=== PATIENT | male | born 1985 | race Caucasian/White ===

== ENCOUNTER 2017-08-13 14:57 | Emergency (ER) | payer SELFPAY ==
[2017-08-13 14:59] VITALS: BP 155/86; PULSE 87; RESP 18; TEMP 36.9; O2SAT 97; BMI 31.1
[2017-08-13 15:39] VITALS: RESP 17
[2017-08-13] MEDS: Clindamycin HCl 150 MG Capsule 300 MG PO (15:47)
--- NOTE | 2017-08-13 16:33 | ED.DCSUM_ITS ---
- ER Visit Summary Date of Service: 08/13/17 Chief Complaint: Right index finger pain and swelling History of Present Illness: The patient is a 32 M who noted pain and swelling to the right index finger yesterday. It has progressed down toward his hands. Patient does state that he bites his fingernails. He is right-hand dominant. Physical Examination: Vital signs are significant for hypertension with a pressure 155/86, otherwise normal. Head and neck examination is normal. Heart is regular rate and rhythm. Lung sounds are clear. Right upper extremity examination reveals a paronychia along the base of the right index fingernail. There is mild edema of the finger. There is no sign of flexor or extensor tenosynovitis. Good cap refill and normal sensation are noted. Test Results: [] Emergency Department Course and Treatment: Patient is given a dose of clindamycin. Digital block is performed with 3 cc 1% lidocaine. An incision is made with a #11 blade just proximal to the nailbed. I do get return of pus and blood. Wound is cleansed and dressed. Patient will be continued on clindamycin. Treatment Plan: [] Disposition: Discharge Impression: Paronychia right index finger status post I&D This note was generated with [employer] dictation software. It may contain incorrect words, spelling, and punctuation that were not noted in review of the chart prior to signing ED Disposition - Plan for ED Patient: Disposition: Home or Assisted Living Chief Complaint: Upper Extremity Injury Instructions: ED Fingernail Infec Prescriptions: Naproxen [Naprosyn] 500 mg PO BID PRN #20 tablet Clindamycin [Cleocin] 300 mg PO 4X/DAY #80 capsule Referrals: Luis Garcia MD [Primary Care Provider] - 1 Week
[2017-08-13 16:41] VITALS: PULSE 91; RESP 16; O2SAT 95
== END 2017-08-13 16:43 | disposition home or self-care (01) ==
PROVIDERS: Emergency Provider Emergency Medicine; Family Provider Family Medicine; PCP Family Medicine
DX: L03.011 Cellulitis of right finger (principal); Z72.0 Tobacco use
CPT/HCPCS: 10060; 99283

== ENCOUNTER 2018-03-13 14:34 | Emergency (ER) | payer SELFPAY ==
[2018-03-13 14:35] VITALS: BP 146/89; PULSE 92; RESP 16; TEMP 36.9; O2SAT 98; BMI 30.9
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
== END 2018-03-13 15:37 | disposition home or self-care (01) ==
LOC: ED 15:01
PROVIDERS: Emergency Provider Emergency Medicine; Family Provider Family Medicine; PCP Family Medicine
DX: S16.1XXA Strain of muscle, fascia and tendon at neck level, initial encounter (principal); S29.012A Strain of muscle and tendon of back wall of thorax, initial encounter; V49.40XA Driver injured in collision with unspecified motor vehicles in traffic accident, initial encounter; Y93.9 Activity, unspecified; Y92.9 Unspecified place or not applicable; Y99.9 Unspecified external cause status; Z72.0 Tobacco use
CPT/HCPCS: 99282

== ENCOUNTER 2019-06-14 14:29 | Emergency (ER) | payer SELFPAY ==
[2019-06-14] VITALS (11 sets, daily range): BP systolic 102–118; BP diastolic 68–81; PULSE 80–137; RESP 14–18; TEMP 36.6; O2SAT 96–98; BMI 25.0
--- NOTE | 2019-06-14 15:32 | EKG12_ITS ---
Test Reason : MEDICAL CLEARANCE Blood Pressure : / mmHG Vent. Rate : 103 BPM Atrial Rate : 103 BPM P-R Int : 136 ms QRS Dur : 084 ms QT Int : 340 ms P-R-T Axes : 059 062 023 degrees QTc Int : 445 ms Sinus tachycardia Otherwise normal ECG Confirmed by ANGELI MERRILL ([id number]), copy editor ANNETTE BARROW ([id number]) on 06/17/2019 10:58:14 AM Referred By: ALANA Confirmed By:ANGELI MERRILL
--- NOTE | 2019-06-14 15:33 | ED.VISSUMM ---
- ER Visit Summary Date of Service: 06/14/19 Chief Complaint: Suicidal ideation History of Present Illness: The patient is a 34 M who presents with suicidal ideation that began today. Patient was in care home and was being released when he made threats to kill himself as well as his ex-. Currently, the patient denies any suicidal homicidal ideations. Patient states that his [id number] was lying about all of this. Police report the patient has been anxious and combative. Patient was seen by crisis at the care home and needs medical clearance. Crisis is trying to admit the patient to [facility]. [place] slip was filled out by crisis. Physical Examination: Vital signs are stable except for tachycardia of 137. Patient is afebrile. Patient is in no acute distress. Oral mucosa is pink and moist. Neck is supple. Trachea is midline. There is no JVD. Heart was regular rate and rhythm. Lungs are clear and equal bilaterally. Abdomen is soft. Bowel sounds are normal. There is no tenderness. Cranial nerves II through XII are intact. There are no focal motor or sensory deficits noted. Patient does have a flat affect and poverty of speech. Patient currently denies any suicidal homicidal ideations. Test Results: EKG showed sinus rhythm with a rate of 103. There are no acute ST or T wave changes. CBC shows a slight leukocytosis of 11.6. Basic metabolic profile and hepatic profile were obtained and were within normal limits. Urine tox screen was positive for amphetamines, methamphetamines, and benzodiazepines. Serum alcohol level was normal. Emergency Department Course and Treatment: Patient did attempt to leave the emergency department. Patient was found and brought back to the emergency department. Patient was getting more agitated. Patient was given a dose of Geodon and Ativan. Patient remained calm and cooperative after this. Crisis will be in to evaluate the patient and attempt to transfer the patient to [facility]. Disposition: Transfer to psychiatric facility Impression: 1. Depression with suicidal ideation 2. Homicidal ideation 3. Substance abuse This note was generated with [employer] dictation software. It may contain incorrect words, spelling, and punctuation that were not noted in review of the chart prior to signing ED Disposition - Plan for ED Patient: Disposition: Psychiatric Hospital or Unit Diagnosis: Depression with suicidal ideation, Homicidal ideation, Substance abuse Referrals: Luis Garcia MD [NON-STAFF] -
[2019-06-14 15:41] LABS: Absolute Lymphocyte Count 2.51 X10^3/uL (0.83-4.51); Basophil# 0.04 X10^3/uL; Basophil% 0.3 % (0-1); Eosinophil# 0.12 X10^3/uL; Hematocrit 48.8 % (40-54); Hemoglobin 15.9 g/dL (13.0-16.5); Lymphocyte # 2.51 X10^3/ul (4.0); Lymphocyte % 21.6 % (19-41); Mean Corp Hgb Conc 32.6 g/dL (32-36); Mean Corpuscular Volume 89.1 fL (80-94); Mean Platelet Vol. 9.3 fl (6.2-12.0); Monocyte# 0.88 X10^3/uL; Monocyte% 7.6 % (0-10); NRBC Flagged by Analyzer 0 % (0-5); Neutrophil # 8.04 X10^3/uL (2.7-7.7); Neutrophil % 69.2 % (47-70); Platelet Count 355 K/mm3 (150-450); RBC Distribution Width CV 13.9 % (11.6-14.6); RBC Distribution Width SD 45.4 fl (35.1-43.9); Red Blood Count 5.48 M/mm3 (4.6-6.2); White Blood Count 11.6 K/mm3 (4.4-11.0)
[2019-06-14 15:46] LABS: Anion Gap 11 (5-15); BUN 15 mg/dL (7-18); BUN/Creat Ratio 16.8 RATIO (10-20); Calcium,Total 9.8 mg/dL (8.5-10.1); Chloride 106 mmol/L (98-107); Creatinine, Serum 0.89 mg/dL (0.70-1.30); EST Glomerular Filtration Rate 103 mL/min (>60); Est Glom Filt Rate - Afr Amer 125 mL/min (>60); Estimated Creatinine Clearance 100.77 ml/min; Glucose 71 mg/dL (74-106); Potassium 3.9 mmol/L (3.5-5.1); Sodium Level 139 mmol/L (136-145)
[2019-06-14 16:22] LABS: AST(SGOT) 18 U/L (15-37); Alanine Aminotransfer ALT/SGPT 32 U/L (16-61); Albumin, Serum 4.2 g/dL (3.2-5.0); Alkaline Phosphatase 87 U/L (45-117); Bilirubin, Direct 0.18 mg/dL (0.00-0.30); Globulin 4.2 g/dL (2.2-4.2); Protein, Total 8.4 g/dL (6.4-8.2)
[2019-06-14 16:31] LABS: Amphetamine Urine VISTA POSITIVE (<1000 ng/mL); Barbiturate Urine VISTA NEGATIVE (< 200 ng/mL); Benzodiazepine Urine VISTA POSITIVE (< 200 ng/mL); Cocaine Urine VISTA NEGATIVE (< 300 ng/mL); Ecstacy Urine VISTA POSITIVE (< 500 ng/mL); Methadone Urine VISTA NEGATIVE (< 300 ng/mL); PCP Urine VISTA NEGATIVE (< 25 ng/mL); THC Urine VISTA NEGATIVE (< 50 ng/mL); Vista UDS pH Range 6
--- NOTE | 2019-06-14 17:06 | ED.RN ---
THIS RN AT BEDSIDE WITH PT FOR CUSTOMER SERVICE EVALUATION. PT REPORTS. I HEARD THAT MALI THE COUNSELOR CALLED FOR ME TWO HOURS AGO. WHAT IS GOING ON. THIS RN TRYING TO EXPLAIN TO PT THAT HE NEEDS TO BE MEDICALLY CLEARED BY THE DOCTOR BEFORE THEY CAN DECIDE HIS PLAN OF CARE. PT REPORTS, FUCK THIS I AM OUT OF HERE AND I AM NOT GOING ANYWHERE. PT LEAVES THE DEPT. POLICE AND SECURITY NOTIFIED.
[2019-06-14] MEDS: LORazepam 2 MG/ML Syringe 1 MG IM (17:33)
[2019-06-14] MEDS: Ziprasidone IM 20 MG/ML VIAL IM (17:34)
--- NOTE | 2019-06-14 17:39 | ED.RN ---
PT ESCORTED BACK INTO DEPT BY OFFICER RENEA AND ANNETTE DATASTAGE DEVELOPER. PT SHOUTING IN ROOM. OFFICER AT BEDSIDE SPEAKING TO PT OFFERING EMOTIONAL SUPPORT. PT EDUCATED THAT HE CANNOT LEAVE THE DEPT. PT ASKS FOR MEDICATION TO HELP HIM CALM DOWN. PT MEDICATED. PT GIVEN MEAL TRAY. PT REMAINS COOPERATIVE AT THIS TIME. PT TEARFUL. SITTER AT BEDSIDE.
[2019-06-14 18:42] LABS: Alcohol, Blood (Medical)-Serum < 3.0 mg/dL
[2019-06-15] VITALS (15 sets, daily range): BP systolic 109–128; BP diastolic 70–91; PULSE 78–105; RESP 14–18; TEMP 36.8; O2SAT 95–98
[2019-06-15] MEDS: Escitalopram Oxalate 20 MG Tablet PO (11:31)
--- NOTE | 2019-06-15 12:07 | CM.ED ---
SOCIAL WORK RECEIVED CALL FROM MALI WITH CRISIS. PER MALI WILL CHECK IN WITH [facility] REGARDING STATES OF BED. CRISIS TO SET UP TRANSPORT UPON D/C. D. MS SURESHW, GENERAL ROAD SUPERVISOR.
[2019-06-15] MEDS: ALPRAZolam 0.5 MG Tablet PO ×2 (16:48→19:48)
[2019-06-15] MEDS: Ziprasidone HCl 20 MG Capsule PO (19:48)
== END 2019-06-15 20:35 ==
PROVIDERS: Emergency Provider Emergency Medicine
DX: F32.9 Major depressive disorder, single episode, unspecified (principal); R45.851 Suicidal ideations; R45.850 Homicidal ideations; F19.10 Other psychoactive substance abuse, uncomplicated; Z79.899 Other long term (current) drug therapy; F17.200 Nicotine dependence, unspecified, uncomplicated
CPT/HCPCS: 80048; 80076; 80307; 80320; 85025; 93005; 96372; 99285; J7030; G0480; J3486

== ENCOUNTER 2020-05-15 00:50 | Emergency (ER) | payer MEDICAID, SELFPAY ==
[2019-06-14 14:33] VITALS: BMI 25.0
[2020-05-15] VITALS (15 sets, daily range): BP systolic 112–146; BP diastolic 58–104; PULSE 72–108; RESP 13–21; TEMP 36.4; O2SAT 92–98; BMI 31.4
--- NOTE | 2020-05-15 00:55 | ED.RN ---
PT REFUSING TO GET UNDRESSED. JUST LET ME SLEEP. YOU MOTHER JOHN SENT ME TO [facility] TWICE AND THAT AINT HAPPENING.
--- NOTE | 2020-05-15 01:04 | EKG12_ITS ---
Test Reason : OVERDOSE Blood Pressure : / mmHG Vent. Rate : 096 BPM Atrial Rate : 096 BPM P-R Int : 156 ms QRS Dur : 092 ms QT Int : 364 ms P-R-T Axes : 051 024 015 degrees QTc Int : 459 ms Normal sinus rhythm Normal ECG Confirmed by DANIELA LINARES, SAE ([id number]), editorial clerk ALFREDITO BRYAN ([id number]) on 05/17/2020 9:47:30 AM Referred By: RINA Confirmed By:SAE SUAREZ MD
--- NOTE | 2020-05-15 01:05 | ED.DCSUM_ITS ---
History of Present Illness Chief Complaint: Overdose Informant: Patient Narrative: Stated approximately an hour and a half ago he took 25 tablets of his home Seroquel 50 mg. He did this to overdose to kill himself on purpose. He has history of bipolar and takes his medication. Denies any other medical problems. Currently he stated he is refusing all treatment. He is unsure who called the paramedics who brought him in. He has been admitted to [facility] twice in the past for bipolar related problems. Patient stated he is not wanting any treatment. He is not cooperative with history and told me to get the out of his room and is cussing at me. Past Medical History - Allergies and Home Meds Allergies/Adverse Reactions: Allergies No Known Allergies Allergy (Verified 06/14/19 14:31) Primary Care Physician: Care Physician,No Primary [Primary Care Provider] - Prior records reviewed: Yes Past Medical History: - - Bipolar disorder Surgical History: - - reviewed Smoking Status: Current every day smoker Alcohol: None Drugs: None Review of Systems General: Denies: Chills, Fever, Sweats Eyes: Denies: Visual changes - bilaterally, Diplopia ENT: Denies: Rhinorrhea, Sore throat Cardiovascular: Denies: Chest pain, Palpitations Respiratory: Denies: Dyspnea, Cough, Dyspnea on exertion Gastrointestinal: Denies: Abdominal pain, Nausea, Vomiting, Diarrhea, Melena, Hematochezia Genitourinary: Denies: Dysuria, Hematuria, Frequency Musculoskeletal: Denies: Back pain, Extremity Pain Skin: Denies: Rash, Wounds Neurological: Denies: Headache, Weakness, Numbness Psych: Reports: - - Suicidal gesture with overdose Physical Exam Vital Signs/Narrative: Vital Signs Temp Pulse Resp BP Pulse Ox 05/15/20 00:50 97.5 F L 102 H 16 132/85 H 96 General: Well nourished, Well developed, No Acute Distress Head: Normocephalic, Atraumatic Eyes: Perrl, EOMI ENT: Moist mucous membranes, No rhinorrhea Neck: Supple, Nontender Cardiovascular: Regular rate, Regular rhythm, No murmurs Respiratory: No distress, CTA bilaterally, Chest nontender Abdomen: Soft, Nontender, Nondistended, Normal bowel sounds Back: Nontender, Normal Inspection Extremities: Nontender, No edema Skin: Normal color, No rash Neurological: Alert, Oriented x3, Cranial nerves II-XII grossly intact, Normal Strength, Normal Sensation Psychological: Normal affect, Normal Mood Diagnostic/Tx/Re-eval - Medical Decision Making Patient angry that is here for evaluation. Lab work ordered. Due to the fact that the patient stated this happened an hour and a half ago I do not feel he needs activated charcoal. Work shows nothing acute. Alcohol negative. EKG shows sinus rhythm at a rate of 96 QTC 459. Discussed the case with poison control. They recommend monitoring the patient for 6 hours postingestion. He has been resting comfortably with no acute problems throughout this time. Will be seen by mental health in the morning after medical clearance that time. ED Disposition - Plan for ED Patient: Disposition: Psychiatric Hospital or Unit Diagnosis: Drug overdose, intentional
[2020-05-15 01:31] LABS: Absolute Lymphocyte Count 4.16 X10^3/uL (0.83-4.51); Absolute Neutrophil Count 2.9 X10^3/uL (2.0-7.7); Basophil# 0.03 X10^3/uL; Basophil% 0.4 % (0-1); Eosinophil# 0.16 X10^3/uL; Hemoglobin 13.1 g/dL (13.0-16.5); Lymphocyte # 4.16 X10^3/ul (4.0); Lymphocyte % 50.7 % (19-41); Mean Corp Hgb Conc 32.8 g/dL (32-36); Mean Corpuscular Hgb 29.7 pg (27.0-32.0); Mean Corpuscular Volume 90.7 fL (80-94); Mean Platelet Vol. 9.1 fl (6.2-12.0); Monocyte# 0.98 X10^3/uL; NRBC Flagged by Analyzer 0 % (0-5); Neutrophil # 2.85 X10^3/uL (2.7-7.7); Neutrophil % 34.7 % (47-70); Platelet Count 313 K/mm3 (150-450); RBC Distribution Width CV 13.5 % (11.6-14.6); Red Blood Count 4.41 M/mm3 (4.6-6.2); White Blood Count 8.2 K/mm3 (4.4-11.0)
[2020-05-15 01:47] LABS: AST(SGOT) 13 U/L (15-37); Alanine Aminotransfer ALT/SGPT 32 U/L (16-61); Albumin, Serum 3.4 g/dL (3.2-5.0); Alkaline Phosphatase 81 U/L (45-117); Anion Gap 5 (5-15); BUN 7 mg/dL (7-18); BUN/Creat Ratio 7.4 RATIO (10-20); Calcium,Total 8.7 mg/dL (8.5-10.1); Chloride 109 mmol/L (98-107); Creatinine, Serum 0.94 mg/dL (0.70-1.30); EST Glomerular Filtration Rate 96 mL/min (>60); Est Glom Filt Rate - Afr Amer 117 mL/min (>60); Globulin 3.5 g/dL (2.2-4.2); Glucose 132 mg/dL (74-106); Potassium 3.4 mmol/L (3.5-5.1); Protein, Total 6.9 g/dL (6.4-8.2); Sodium Level 143 mmol/L (136-145)
--- NOTE | 2020-05-15 02:17 | ED.RN ---
mother updated on patient condition at this time
[2020-05-15 02:19] LABS: Alcohol, Blood (Medical)-Serum < 3.0 mg/dL
--- NOTE | 2020-05-15 02:45 | ED.RN ---
NOT PUSHING FOR URINE PT NEEDS OBSERVED FOR 6 HRS BEFORE MEDICALLY CLEARED.
[2020-05-15 06:19] LABS: Glucose, Dipstick Normal (Normal); Ketone-Dipstick Negative (Negative); Leukocyte Esterase-Dipstick Negative /ul (Negative); Nitrite-Dipstick Negative (Negative); Occult Blood-Urine Negative /ul (Negative); Protein-Dipstick 15 mg/dl (Negative); Urine Bilirubin Dipstick Negative (Negative); Urine Urobilinogen Normal (Normal)
[2020-05-15 06:20] LABS: Bacteria 0 SEEN /hpf (None Seen); Color, Urine Yellow (Yellow); Mucous, Urine 0 SEEN /hpf (<or=2+); Red Blood Cells-Urine 0 SEEN /hpf (0-5)
[2020-05-15 06:21] LABS: Urine Clarity Clear (Clear)
[2020-05-15 06:26] LABS: Squamous Epithelial Cells - UA 0-5 SEEN /hpf (0-5); White Blood Cells 0-5 SEEN /hpf (0-5)
[2020-05-15 06:39] LABS: Amphetamine Urine VISTA POSITIVE (<1000 ng/mL); Barbiturate Urine VISTA NEGATIVE (< 200 ng/mL); Benzodiazepine Urine VISTA POSITIVE (< 200 ng/mL); Cocaine Urine VISTA NEGATIVE (< 300 ng/mL); Ecstacy Urine VISTA POSITIVE (< 500 ng/mL); Methadone Urine VISTA NEGATIVE (< 300 ng/mL); PCP Urine VISTA NEGATIVE (< 25 ng/mL); THC Urine VISTA NEGATIVE (< 50 ng/mL); Vista UDS pH Range 6
[2020-05-15 07:46] LABS: Acetaminophen (Tylenol) Level < 2.0 ug/mL (10.0-30.0); Salicylate < 1.7 mg/dL (2.8-20.0)
--- NOTE | 2020-05-15 07:50 | EKG12_ITS ---
Test Reason : [facility] Blood Pressure : / mmHG Vent. Rate : 095 BPM Atrial Rate : 095 BPM P-R Int : 154 ms QRS Dur : 090 ms QT Int : 360 ms P-R-T Axes : 045 023 017 degrees QTc Int : 452 ms Normal sinus rhythm Normal ECG Confirmed by BELLA LINARES, LAKIA ([id number]), assistant editor ALFREDITO BRYAN ([id number]) on 05/16/2020 9:22:50 AM Referred By: CAMI Confirmed By:LAKIA BLANCO MD
--- NOTE | 2020-05-15 09:28 | ED.RN ---
PT TALKING TO THE COUNSELING CENTER ON THE PHONE. DURING THE CONVERSATION, PT HUNG UP AND THREW THE PHONE.
--- NOTE | 2020-05-15 09:30 | ED.RN ---
ALLERGIES PER THE RECORDS AT THE COUNSELING CENTER
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
[2020-05-15] MEDS: Ziprasidone IM 20 MG/ML VIAL IM (10:40)
--- NOTE | 2020-05-15 13:10 | ED.RN ---
REMOVED RIGHT WRIST AND LEFT ANKLE FROM RESTRAINTS.
[2020-05-16] VITALS: BP 129/84; PULSE 97; RESP 14; O2SAT 97
[2020-05-16 01:00] VITALS: BP 129/80; PULSE 91; RESP 25; O2SAT 97
[2020-05-16] MEDS: Ziprasidone IM 20 MG/ML VIAL IM (01:41)
== END 2020-05-16 01:45 ==
PROVIDERS: Student in an Organized Health Care Education/Training Program; Emergency Provider Emergency Medicine
DX: T43.592A Poisoning by other antipsychotics and neuroleptics, intentional self-harm, initial encounter (principal); F17.200 Nicotine dependence, unspecified, uncomplicated; F31.9 Bipolar disorder, unspecified
CPT/HCPCS: 80053; 80307; 80320; 80329; 81001; 83735; 85025; 87426; 93005; 96372; 99285; G0480; J3486

== ENCOUNTER 2020-06-01 13:34 | Emergency (ER) | payer MEDICAID, SELFPAY ==
[2020-05-15 00:50] VITALS: BMI 31.4
[2020-06-01 13:35] VITALS: BP 152/99; PULSE 109; RESP 16; TEMP 35.9; O2SAT 99; BMI 32.1
--- NOTE | 2020-06-01 14:14 | ED.DCSUM_ITS ---
History of Present Illness Chief Complaint: Abd Pain Informant: Patient Onset: Month(s) - 1 Narrative: Presents intermittent left upper quadrant epigastric abdominal pain for the past month. Reports symptoms started after bending over and tying his shoes. Denies any trauma. Denies vomiting or diarrhea. Denies melena or hematochezia. Normal bowel movements. Denies fevers. He states his urine frequency. Denies any abdominal surgeries. Has not had this evaluated. Prior similar symptoms: No Past Medical History - Allergies and Home Meds Allergies/Adverse Reactions: Allergies clonazepam [From Klonopin] Allergy (Verified 06/01/20 13:37) DECREASED LOC lorazepam [From Ativan] Allergy (Verified 06/01/20 13:37) Shortness of breath Primary Care Physician: Care Physician,No Primary [NON-STAFF] - Past Medical History: - - Anxiety and depression Surgical History: - - reviewed Smoking Status: Current every day smoker Review of Systems General: Denies: Chills, Fever, Sweats Eyes: Denies: Visual changes - bilaterally, Diplopia ENT: Denies: Rhinorrhea, Sore throat Cardiovascular: Denies: Chest pain, Palpitations Respiratory: Denies: Dyspnea, Cough, Dyspnea on exertion Gastrointestinal: Reports: Abdominal pain. Denies: Nausea, Vomiting, Diarrhea, Melena, Hematochezia Genitourinary: Denies: Dysuria, Hematuria, Frequency Musculoskeletal: Denies: Back pain, Extremity Pain Skin: Denies: Rash, Wounds Neurological: Denies: Headache, Weakness, Numbness Physical Exam Vital Signs/Narrative: Vital Signs Temp Pulse Resp BP Pulse Ox 06/01/20 13:35 96.6 F L 109 H 16 152/99 H 99 Inital Vital Signs reviewed: Yes General: Well nourished, Well developed, No Acute Distress Head: Normocephalic, Atraumatic Eyes: Perrl, EOMI ENT: Moist mucous membranes, No rhinorrhea Neck: Supple, Nontender Cardiovascular: Regular rate, Regular rhythm, No murmurs Respiratory: No distress, CTA bilaterally, Chest nontender Abdomen: Soft, Nondistended, Normal bowel sounds, - - Minimal tenderness epigastric region. No guarding or rebound. Negative Salvador's or McBurney's tenderness. Back: Nontender, Normal Inspection Extremities: Nontender, No edema Skin: Normal color, No rash Neurological: Alert, Oriented x3, Cranial nerves II-XII grossly intact, Normal Strength, Normal Sensation Psychological: Normal affect, Normal Mood Diagnostic/Tx/Re-eval Abnormal Lab Results 06/01/20 06/01/20 06/01/20 14:25 14:40 14:40 WBC 7.9 RBC 4.54 L Hgb 13.2 Hct 42.0 MCV 92.5 MCH 29.1 MCHC 31.4 L RDW Std Deviation 49.6 H RDW Coeff of Vick 14.5 Plt Count 276 MPV 8.8 Immature Gran % (Auto) 0.500 Neut % (Auto) 52.8 Lymph % (Auto) 33.6 [place] % (Auto) 10.7 H Eos % (Auto) 1.9 Baso % (Auto) 0.5 Absolute Neuts (auto) 4.1 Absolute Lymphs (auto) 2.64 Nucleated RBC % 0 Sodium 142 Potassium 3.7 Chloride 109 H Carbon Dioxide 30.0 Anion Gap 3 L BUN 15 Creatinine 0.89 Estim Creat Clear Calc 99.81 Est GFR (MDRD) Af Amer 124 Est GFR (MDRD) Non-Af 102 BUN/Creatinine Ratio 16.8 Glucose 71 L Calcium 8.5 Total Bilirubin 0.20 AST 38 H ALT 119 H Alkaline Phosphatase 91 Total Protein 7.7 Albumin 3.6 Globulin 4.1 Albumin/Globulin Ratio 0.9 Lipase 138 Urine Color Yellow Urine Clarity Sl. Cloudy Urine pH 5.0 Ur Specific [place] 1.015 Urine Protein Negative Urine Glucose (UA) Normal Urine Ketones 5 H Urine Occult Blood Negative Urine Nitrite Negative Urine Bilirubin Negative Urine Urobilinogen Normal Ur Leukocyte Esterase Negative Urine RBC 0 SEEN Urine WBC 0-5 SEEN Ur Squamous Epith Cells 0-5 SEEN Urine Bacteria RARE Urine Mucus RARE - Medical Decision Making Patient with a nonsurgical abdomen. Vital signs stable. Abdominal labs normal urine negative. Given GI cocktail which he reports did not make any difference. Reports has been using Tylenol with no relief. There is no rash in the region. Do not feel imagings are necessary at this time. Normal GI function. Patient given NSAID prescription following up with his PCP. All questions were answered. Patient is being discharged under pandemic conditions under declared global, national and state disaster activation, with limited medical resources. Patient and community understands this. Results discussed in layman's terms to the patient satisfaction. All questions answered in layman's terms. Patient understands importance of follow-up care as directed. Patient has been instructed to return to the ED immediately if new symptoms, problems, or questions occur. We mutually agree with the plan of disposition. The patient understand that they may call or return with any questions or concerns at any time. ED Disposition - Plan for ED Patient: Disposition: Home or Assisted Living Diagnosis: Abdominal pain in male Instructions: ED Unknown Causes of Abdominal ... Prescriptions: Naproxen [Naprosyn] 500 mg PO BID #20 tab Transmission Status: Pending to [facility]/pharmacy #[id number] Referrals: Tanner Funes MD [[facility]] - 3-5 Days
[2020-06-01] MEDS: Mag Hydrox/Al Hydrox/Simeth 30 ML UDC PO (14:31)
[2020-06-01 14:36] LABS: Red Blood Cells-Urine 0 SEEN /hpf (0-5)
[2020-06-01 14:39] LABS: Color, Urine Yellow (Yellow); Glucose, Dipstick Normal (Normal); Ketone-Dipstick 5 mg/dl (Negative); Leukocyte Esterase-Dipstick Negative /ul (Negative); Nitrite-Dipstick Negative (Negative); Occult Blood-Urine Negative /ul (Negative); Protein-Dipstick Negative (Negative); Specific Gravity, Urine 1.015 (1.002-1.030); Urine Bilirubin Dipstick Negative (Negative); Urine Clarity Sl. Cloudy (Clear); Urine Urobilinogen Normal (Normal)
[2020-06-01 14:49] LABS: Bacteria RARE /hpf (None Seen); Mucous, Urine RARE /hpf (<or=2+); Squamous Epithelial Cells - UA 0-5 SEEN /hpf (0-5); White Blood Cells 0-5 SEEN /hpf (0-5)
[2020-06-01 14:53] LABS: Absolute Lymphocyte Count 2.64 X10^3/uL (0.83-4.51); Absolute Neutrophil Count 4.1 X10^3/uL (2.0-7.7); Basophil# 0.04 X10^3/uL; Basophil% 0.5 % (0-1); Eosinophil# 0.15 X10^3/uL; Eosinophils% 1.9 % (0-5); Hemoglobin 13.2 g/dL (13.0-16.5); Lymphocyte # 2.64 X10^3/ul (4.0); Lymphocyte % 33.6 % (19-41); Mean Corp Hgb Conc 31.4 g/dL (32-36); Mean Corpuscular Hgb 29.1 pg (27.0-32.0); Mean Corpuscular Volume 92.5 fL (80-94); Mean Platelet Vol. 8.8 fl (6.2-12.0); Monocyte# 0.84 X10^3/uL; Monocyte% 10.7 % (0-10); NRBC Flagged by Analyzer 0 % (0-5); Neutrophil # 4.14 X10^3/uL (2.7-7.7); Neutrophil % 52.8 % (47-70); Platelet Count 276 K/mm3 (150-450); RBC Distribution Width CV 14.5 % (11.6-14.6); RBC Distribution Width SD 49.6 fl (35.1-43.9); Red Blood Count 4.54 M/mm3 (4.6-6.2); White Blood Count 7.9 K/mm3 (4.4-11.0)
[2020-06-01 15:10] LABS: ALB/GLOB Ratio 0.9 RATIO (0.9-2.4); AST(SGOT) 38 U/L (15-37); Alanine Aminotransfer ALT/SGPT 119 U/L (16-61); Albumin, Serum 3.6 g/dL (3.2-5.0); Alkaline Phosphatase 91 U/L (45-117); Anion Gap 3 (5-15); BUN 15 mg/dL (7-18); BUN/Creat Ratio 16.8 RATIO (10-20); Calcium,Total 8.5 mg/dL (8.5-10.1); Chloride 109 mmol/L (98-107); Creatinine, Serum 0.89 mg/dL (0.70-1.30); EST Glomerular Filtration Rate 102 mL/min (>60); Est Glom Filt Rate - Afr Amer 124 mL/min (>60); Estimated Creatinine Clearance 99.81 ml/min; Globulin 4.1 g/dL (2.2-4.2); Glucose 71 mg/dL (74-106); Lipase 138 U/L (73-393); Potassium 3.7 mmol/L (3.5-5.1); Protein, Total 7.7 g/dL (6.4-8.2); Sodium Level 142 mmol/L (136-145)
[2020-06-01 16:03] VITALS: BP 150/84; PULSE 104; RESP 18; O2SAT 99
== END 2020-06-01 16:04 | disposition home or self-care (01) ==
PROVIDERS: Emergency Provider Emergency Medicine; PCP Family Medicine
DX: R10.12 Left upper quadrant pain (principal); R10.13 Epigastric pain; R35.0 Frequency of micturition; F32.9 Major depressive disorder, single episode, unspecified; F41.9 Anxiety disorder, unspecified; F17.200 Nicotine dependence, unspecified, uncomplicated; Z79.899 Other long term (current) drug therapy
CPT/HCPCS: 80053; 81001; 83690; 85025; 99284; A4216

== ENCOUNTER 2020-07-07 14:30 | Emergency (ER) | payer MEDICAID, SELFPAY ==
[2020-07-07 14:31] VITALS: BP 133/86; PULSE 125; RESP 18; TEMP 36.7; O2SAT 96; BMI 36.8
[2020-07-07 14:35] VITALS: PULSE 123
--- NOTE | 2020-07-07 14:47 | ED.DCSUM_ITS ---
History of Present Illness Chief Complaint: Chest Other Informant: Patient Onset: Weeks - Approximately 10 weeks Context: Sudden Onset Timing: Continuous Quality: Pain described as sharp stabbing Location: Anterior left rib cage, cartilage area Current Severity: Mild Maximum Severity: Moderate Worsened by: Movement, breathing, twisting Relieved by: Nothing Associated Symptoms: No associated symptoms Narrative: Patient is a 35-year-old male who was seen by his PCP on Friday. He has had no relief after having his rib adjusted. Pain started in April. He had a x-ray which was negative. He had a CT which was negative. He reports weight gain not weight loss. He denies fever or chills. He denies cough. He denies hemoptysis. He denies leg pain, swelling discoloration. He is a smoker. He denies nausea, vomiting diarrhea. He denies upper respiratory symptoms. He has had no exposure to Covid. Prior similar symptoms: Yes Recent Illness/Hospitalization: Yes - Past Medical History (1) No significant past medical history Status: Acute Past Medical History - Allergies and Home Meds Allergies/Adverse Reactions: Allergies clonazepam [From Klonopin] Allergy (Verified 07/07/20 14:31) DECREASED LOC lorazepam [From Ativan] Allergy (Verified 07/07/20 14:31) Shortness of breath Primary Care Physician: Luis Garcia [Primary Care Provider] - Prior records reviewed: No Past Medical History: None Surgical History: noncontributory, - - reviewed Lives: Spouse/ Significant Other Smoking Status: Current every day smoker Alcohol: Rare Drugs: None Review of Systems General: Denies: Chills, Fever, Malaise, Subjective, Weight loss ENT: Denies: Bilateral ear pain, Right ear pain, Rhinorrhea Cardiovascular: Reports: Chest pain. Denies: Palpitations, Heart racing Respiratory: Denies: Dyspnea, Cough, Dyspnea on exertion, Orthopnea, Paroxysmal nocturnal dyspnea Gastrointestinal: Denies: Abdominal pain, Nausea, Vomiting, Diarrhea, Constipation, Melena, Hematochezia Genitourinary: Denies: Dysuria, Hematuria, Frequency Musculoskeletal: Denies: Myalgias, Arthralgias, Back pain Skin: Denies: Rash, Wounds Neurological: Denies: Weakness, Parasthesia Hematologic: Denies: Easy bruising Physical Exam Vital Signs/Narrative: Vital Signs Temp Pulse Resp BP Pulse Ox 07/07/20 14:35 123 H 07/07/20 14:31 98.0 F 125 H 18 133/86 H 96 Inital Vital Signs reviewed: Yes General: Well nourished, Well developed, Obese, No Acute Distress Head: Normocephalic, Atraumatic Eyes: Perrl, EOMI, Pale conjunctiva, Scleral icterus Neck: Supple, Nontender, No lymphadenopathy, No JVD Cardiovascular: Regular rate, Regular rhythm, No murmurs, Normal S1, Normal S2, - - Patient's heart rate during my examination was 90. Respiratory: No distress, CTA bilaterally, Chest tenderness - Chest tenderness left costal cartilage from the mid axillary line to the mid clavicular line. There is no crepitus or subcutaneous air.. Negative for: Chest nontender Abdomen: Soft, Nontender, Nondistended, Normal bowel sounds. Negative for: Hepatomegaly, Splenomegaly, Mass Rectal: Deferred Extremities: Nontender, No edema Skin: Normal color, No rash Neurological: Alert, Oriented x3, Cranial nerves II-XII grossly intact, Normal Strength, Normal Sensation Psychological: Normal affect Diagnostic/Tx/Re-eval - Medical Decision Making Patient had a significant outpatient work-up which is negative. He does have reproducible pain. Since he has no infectious symptoms we will treat with oral analgesia. He was discharged with prescription for Naprosyn and [place]. ED Disposition - Plan for ED Patient: Disposition: Home or Assisted Living Diagnosis: Left-sided chest wall pain Instructions: ED Chest Wall Pain, Costochondritis Prescriptions: Naproxen [Naprosyn] 500 mg PO BID #14 tab Transmission Status: Pending to [id number] Hydrocodone Bitart/Apap 5-325 [[place] 5MG-325MG] 1 tablet PO Q6H PRN PRN 3 Days #7 tablet PRN Reason: Pain Transmission Status: Received by [id number] Referrals: Luis Garcia [Primary Care Provider] - 1 Week if not improving
[2020-07-07] MEDS: Naproxen 250 MG Tablet 500 MG PO (15:04)
== END 2020-07-07 15:16 | disposition home or self-care (01) ==
LOC: ED 15:10
PROVIDERS: Emergency Provider Emergency Medicine
DX: R07.89 Other chest pain (principal); F17.200 Nicotine dependence, unspecified, uncomplicated; E66.9 Obesity, unspecified; Z79.899 Other long term (current) drug therapy
CPT/HCPCS: 99282

== ENCOUNTER 2020-11-14 21:00 | Emergency (ER) | payer MEDICAID, SELFPAY ==
[2020-11-14 21:01] VITALS: BP 157/85; PULSE 122; RESP 16; TEMP 36.4; O2SAT 95; BMI 35.7
--- NOTE | 2020-11-14 22:05 | EX.ED.GENINJ ---
HPI History of Present Illness Chief Complaint: Head Injury Informant: patient Onset/Context/Timing Onset: Today Mechanism/Context: Blunt Injury Quality of Pain: Burning and Stabbing Location: Top of head Worsened by: Nothing Relieved by: Nothing Associated Symptoms Associated Symptoms: Negative for Parasthesias, Weakness, Loss of function, Inability to ambulate, Loss of consciousness and Amnesia Narrative Narrative: Patient presents with head injury that occurred today. Patient states he was using a postal digger when it came up and hit him in the head. Patient denies any loss of consciousness. Patient states he had moderate amount of bleeding from the wound. Patient denies any paresthesias or weakness. Patient states his tetanus is up-to-date. Patient describes the pain as burning and stabbing. Patient denies any neck pain. Patient denies any other injuries. [facility] Medical History Anxiety Home Medications alprazolam 0.5 mg PO TID 05/15/20 [History Last Taken Unknown] aripiprazole 10 mg PO DAILY 05/15/20 [History Last Taken Unknown] escitalopram oxalate 10 mg PO DAILY 05/15/20 [History Last Taken Unknown] naproxen 500 mg PO BID #20 tab 06/01/20 [Rx Last Taken Unknown] naproxen 500 mg PO BID #14 tab 07/07/20 [Rx Last Taken Unknown] Allergy/AdvReac Type Severity Reaction Status Date / Time clonazepam [From Klonopin] Allergy DECREASED Verified 11/14/20 21:01 LOC lorazepam [From Ativan] Allergy Shortness Verified 11/14/20 21:01 of breath no surgical history Social History Smoking Status: Current every day smoker tobacco type: cigarettes ROS ROS ED Constitutional Constitutional ED: Denies chills or fever(s) Eyes Eyes: Denies blurry vision or change in vision ENT ENT ED: Denies rhinorrhea or sore throat Cardiovascular Cardiovascular: Denies chest pain or palpitations Respiratory/Chest Respiratory/Chest: Denies cough or dyspnea Gastrointestinal Gastrointestinal: Denies nausea or vomiting Genitourinary Genitourinary ED: Denies dysuria or hematuria Musculoskeletal Musculoskeletal: Denies back pain or neck pain Integumentary Denies abscess or rash Neurologic Neurologic: Denies headache(s) or weakness Allergic/Immunologic Allergic/Immunologic ED: Denies mouth swelling or urticaria EXAM Physical Exam Const Vital Signs: 11/14/20 21:01 Temperature 97.5 F L Temperature Source Temporal Pulse Rate 122 H Respiratory Rate 16 Blood Pressure 157/85 H Blood Pressure Mean 109 Pulse Ox 95 Oxygen Delivery Method Room Air Positive well nourished and well developed General Appearance ED: well developed HEENT HEENT Narrative: There is a 5 cm full-thickness linear laceration over the top of the scalp. There is no active bleeding. There is minimal gapping of the wound margins. There are no foreign bodies. There is no bony crepitance or step-off. trauma and tenderness Neck full ROM General: Negative for tenderness Neuro oriented x3, CN's II-XII intact bilaterally, moves all extremities, no focal motor deficits, no sensory deficits noted and gait normal Sensorium / Orientation: alert Psych mental status grossly normal PROC Procedures Lacerations Scalp laceration: Length: 5 cm Depth: Skin Shape: Linear Prep: Chlorhexadine Laceration repair: Irrigated and Lidocaine with epi Irrigated (ml): 60 Number of Sutures/Malick: 7 (Malick) MDM MDM MDM Narrative Medical decision making narrative: The wound was cleaned and irrigated with copious amounts normal saline. The wound was anesthetized 1% lidocaine with epinephrine. The wound was closed with 7 malick. Patient tolerated the procedure well. Bacitracin dressing was applied. Patient was instructed to follow-up with his primary care physician in 7 days for wound recheck and staple removal. Patient understood and was agreeable with the plan. All questions were answered. Discharge Plan Triage Chief Complaint: Head Injury ED Provider: Amador Dahl Dx/Rx/DC Orders Clinical Impression: Laceration of scalp Instructions: ED Head Injury (Adult), ED Laceration: All Closures Prescriptions: No Action alprazolam 0.5 MG tablet 0.5 mg PO TID RF: 0 escitalopram oxalate 10 MG tablet 10 mg PO DAILY RF: 0 aripiprazole 10 MG tablet 10 mg PO DAILY RF: 0 naproxen 500 MG tablet 500 mg PO BID Qty: 20 RF: 0 naproxen 500 MG tablet 500 mg PO BID Qty: 14 RF: 0 Primary Care Provider: Luis Garcia Referrals: Luis Garcia [Primary Care Provider] - 7 Days for suture removal Disposition Disposition: Home, self care
[2020-11-14] MEDS: Lidocaine 1% /Epi 1:100 (20ml) 20 ML Vial INFILT (23:26)
== END 2020-11-14 23:27 | disposition home or self-care (01) ==
LOC: ED 22:20
PROVIDERS: Emergency Provider Emergency Medicine
DX: S01.01XA Laceration without foreign body of scalp, initial encounter (principal); F17.210 Nicotine dependence, cigarettes, uncomplicated; X58.XXXA Exposure to other specified factors, initial encounter
CPT/HCPCS: 12002; 99282

== ENCOUNTER 2021-11-15 14:05 | Emergency (ER) | payer MEDICAID, SELFPAY ==
[2021-11-15 14:06] VITALS: BP 214/143; PULSE 122; RESP 18; TEMP 37; O2SAT 95; BMI 33.3
--- NOTE | 2021-11-15 14:16 | ED.RN ---
PT ARRIVES WITH A MULTITUDE OF POLICE OFFICERS . PT TRIAGED, THREATENING TO KILL STAFF AND FAMILY. WHILE AWAITING TRIAGE, [facility]ULT [facility] CALLS AND REQUESTS PT BE MOVED TO [facility]. POLICE DECISION MADE TO TRANSFER PT TO [facility]
== END 2021-11-15 14:12 ==
LOC: ED 14:40
DX: R45.851 Suicidal ideations (principal); Z53.21 Procedure and treatment not carried out due to patient leaving prior to being seen by health care provider